=== PATIENT | female | born 1970 | race Caucasian/White ===

== ENCOUNTER 2016-09-03 10:11 | Emergency (ER) | payer OTHER ==
[~2016-09-03] VITALS: Ht 157.5 cm; Wt 54.3 kg
[~2016-09-03 10:11] MED LIST: ERYT.5%O LEFT EYE; HYDR1LOT TOP; PERM5CRE4 TOP
[2016-09-03 10:19] VITALS: BP 110/79; PULSE 86; RESP 16; TEMP 97.4; O2SAT 97
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
[2016-09-03] MEDS ORDERED: IBUP800T23 PO (12:13)
== END 2016-09-03 12:20 | disposition home or self-care (01) ==
LOC: PHEFT 10:11
DX: S20.212A Contusion of left front wall of thorax, initial encounter (principal); F17.210 Nicotine dependence, cigarettes, uncomplicated; V00.141A Fall from scooter (nonmotorized), initial encounter
CPT/HCPCS: 71100; 99283